=== PATIENT | female | born 1980 | race Two or more races ===

== ENCOUNTER 2020-05-29 09:58 | Emergency (ER) | payer OTHER ==
[~2020-05-29] VITALS: Ht 149.9 cm; Wt 59.0 kg
[2020-05-29] MEDS ORDERED: PRENATAL + DHA1 EACH (10:24)
== END 2020-05-29 15:38 | disposition home or self-care (01) ==
LOC: ER 09:58
DX: O20.8 Other hemorrhage in early pregnancy (principal); O26.851 Spotting complicating pregnancy, first trimester; O36.80X0 Pregnancy with inconclusive fetal viability, not applicable or unspecified; Z3A.10 10 weeks gestation of pregnancy

== ENCOUNTER → 2020-06-18 | Outpatient (CLI) | payer OTHER ==
[~2020-06-18] MED LIST: PRENATAL + DHA1 EACH
== END | disposition home or self-care (01) ==
LOC: PRENATAL 15:00
PROVIDERS: ATTEND Obstetrics & Gynecology Maternal & Fetal Medicine
DX: O34.219 Maternal care for unspecified type scar from previous cesarean delivery (principal); O36.80X1 Pregnancy with inconclusive fetal viability, fetus 1; O09.521 Supervision of elderly multigravida, first trimester; Z36.89 Encounter for other specified antenatal screening; Z3A.13 13 weeks gestation of pregnancy

== ENCOUNTER → 2020-09-02 | Outpatient (CLI) | payer OTHER | END | disposition home or self-care (01) | LOC: PRENATAL 15:00 | PROVIDERS: ATTEND Obstetrics & Gynecology Maternal & Fetal Medicine | DX: O35.0XX1 Maternal care for (suspected) central nervous system malformation in fetus, fetus 1 (principal); O35.3XX1 Maternal care for (suspected) damage to fetus from viral disease in mother, fetus 1; O98.513 Other viral diseases complicating pregnancy, third trimester; O26.843 Uterine size-date discrepancy, third trimester; Z36.89 Encounter for other specified antenatal screening; Z3A.25 25 weeks gestation of pregnancy ==

== ENCOUNTER 2020-10-24 09:13 | Inpatient (IN) | payer OTHER ==
[~2020-10-24] VITALS: Ht 149.9 cm; Wt 61.2 kg
[2020-10-29] MEDS ORDERED: IRON325 MG PO (08:20)
[2020-10-29] MEDS ORDERED: MONISTAT 745 GM VAG (08:20)
[2020-10-29] MEDS ORDERED: NIFEDIPINE ER30 M1 PO (08:20)
== END 2020-10-29 12:18 | disposition home or self-care (01) | DRG 833 ==
LOC: LDR 09:13 → OB/GYN 10-27 08:19
PROVIDERS: ADMIT Specialist; ATTEND Specialist
PROC: 4A1HXFZ Monitoring of Products of Conception, Cardiac Rhythm, External Approach (ICD-10-PCS; principal; 2020-10-24)
PROC: BY4FZZZ Ultrasonography of Third Trimester, Single Fetus (ICD-10-PCS; 2020-10-24)
DX: O47.03 False labor before 37 completed weeks of gestation, third trimester (principal); O99.613 Diseases of the digestive system complicating pregnancy, third trimester; K52.89 Other specified noninfective gastroenteritis and colitis; O34.211 Maternal care for low transverse scar from previous cesarean delivery; Z3A.31 31 weeks gestation of pregnancy; Z20.822 Contact with and (suspected) exposure to COVID-19

== ENCOUNTER 2020-12-08 07:30 | Inpatient (IN) | payer OTHER ==
[~2020-12-08] VITALS: Ht 149.9 cm; Wt 63.0 kg
[~2020-12-08 07:30] MED LIST changes: +IRON325 MG PO; +MONISTAT 745 GM VAG; +NIFEDIPINE ER30 M1 PO
[2020-12-08] MEDS ORDERED: NIFEDIPINE20 MG PO (10:05)
== END 2020-12-14 13:33 | disposition home or self-care (01) | DRG 788 ==
LOC: OB/GYN 12-11 01:59 → LDR 12-11 01:59 → O/R 12-11 08:02 → OB/GYN 12-11 11:03
PROVIDERS: ADMIT Specialist; ATTEND Specialist
PROC: 4A1HXFZ Monitoring of Products of Conception, Cardiac Rhythm, External Approach (ICD-10-PCS; 2020-12-11)
PROC: 10D00Z1 Extraction of Products of Conception, Low, Open Approach (ICD-10-PCS; principal; 2020-12-11 03:00)
DX: O65.5 Obstructed labor due to abnormality of maternal pelvic organs (principal); O34.211 Maternal care for low transverse scar from previous cesarean delivery; Z30.2 Encounter for sterilization; Z3A.38 38 weeks gestation of pregnancy; Z37.0 Single live birth

== ENCOUNTER 2023-04-21 11:51 | Emergency (ER) | payer OTHER ==
[~2023-04-21] VITALS: Ht 149.9 cm; Wt 55.3 kg
[~2023-04-21 11:51] MED LIST changes: +NIFEDIPINE20 MG PO
== END 2023-04-21 15:26 | disposition home or self-care (01) ==
LOC: ER 11:51
DX: N93.8 Other specified abnormal uterine and vaginal bleeding (principal)